=== PATIENT | male | born 1995 | race Caucasian/White ===

== ENCOUNTER 2017-12-23 10:57 | Emergency (ER) | payer BC, OTHER ==
[2017-12-23] MEDS ORDERED: Lidocaine 1% with EPINEPHrine 1:100,000 10 ML MDV INJECT ONE (11:29)
--- NOTE | 2017-12-23 11:33 | EDM.PDOC ---
ED HPI GENERAL MEDICAL PROBLEM - General Chief Complaint: Laceration Stated Complaint: FALL(HEAD INJURY) Time Seen by Provider: 12/23/17 11:30 Source of Information: Reports: Patient History Limitations: Reports: No Limitations - History of Present Illness INITIAL COMMENTS - FREE TEXT/NARRATIVE: HISTORY AND PHYSICAL: History of present illness: 22-year-old male presents to the ER after slipping and falling on the ice and hitting his head on the right side. Patient suffered a laceration to the right side ahead. Patient did not lose consciousness. Reports a headache as 5 out of 10 but did take some Tylenol prior to coming into the ER. Patient does not have any focal neurological deficits. He has no other acute concerns currently. Review of systems: As per history of present illness and below otherwise all systems reviewed and negative. Past medical history: As per history of present illness and as reviewed below otherwise noncontributory. Surgical history: As per history of present illness and as reviewed below otherwise noncontributory. Social history: No reported history of drug or alcohol abuse. Family history: As per history of present illness and as reviewed below otherwise noncontributory. Physical exam: HEENT: 3 cm laceration noted at the upper portion of the right side of the forehead. Lungs: Clear to auscultation, breath sounds equal bilaterally, chest nontender. Heart: S1S2, regular, negative for clicks, rubs, or JVD. Neuro: Awake, alert, oriented. Cranial nerves II through XII unremarkable. Cerebellum unremarkable. Motor and sensory unremarkable throughout. Exam nonfocal. Diagnostics: [] Therapeutics: 3-0 Prolene used to suture laceration yeny patient tolerated procedure well. t. 3 sutures used. Area was anesthetized using 1% lidocaine without epinephrine. Impression: Head laceration Plan: Patient will follow up with his PCP, Dr. clark, in 5-7 days to have sutures removed. Patient instructed to keep area dry for 24 hours and then to ensure that there is stays clean after that. Definitive disposition and diagnosis as appropriate pending reevaluation and review of above. Headache Pain Score (Numeric/FACES): 5 - Related Data Allergies Allergy/AdvReac Type Severity Reaction Status Date / Time Sulfa (Sulfonamide Allergy Rash Verified 12/23/17 11:14 Antibiotics) Home Meds: Home Meds . [No Known Home Meds] 12/23/17 [History] Past Medical History - Past Surgical History Musculoskeletal Surgical History: Reports: Knee Replacement Other Musculoskeletal Surgeries/Procedures:: Had a rebuild of his R knee Social & Family History - Family History Family Medical History: Noncontributory - Tobacco Use Smoking Status *Q: Never Smoker - Caffeine Use Caffeine Use: Reports: Soda - Recreational Drug Use Recreational Drug Use: No ED ROS GENERAL - Review of Systems Review Of Systems: ROS reveals no pertinent complaints other than HPI. ED EXAM, SKIN/RASH Exam: See Below Text/Narrative:: See dictation Course - Vital Signs Last Recorded V/S: Last Vital Signs Temp 98.3 F 12/23/17 11:12 Pulse 81 12/23/17 11:12 Resp 18 12/23/17 11:12 BP 135/85 12/23/17 11:12 Pulse Ox 97 12/23/17 11:12 - Orders/Labs/Meds Orders: Active Orders 24 hr Category Date Time Status Bacitracin [Bacitracin Oint 1 GM] Med 12/23/17 12:08 Once 1 dose TOP ONETIME ONE Meds: Medications Discontinued Medications Generic Name Dose Route Start Last Admin Trade Name Kaylyn PRN Reason Stop Dose Admin Lidocaine HCl Confirm 12/23/17 11:45 Xylocaine 1% Administered 12/23/17 11:46 Dose 20 ml .ROUTE .STK-MED ONE Lidocaine/Epinephrine 10 ml 12/23/17 11:29 Xylocaine 1% With Epinephrine 1:100,000 INJECT 12/23/17 11:30 ONETIME ONE Departure - Departure Time of Disposition: 12:10 Disposition: Home, Self-Care 01 Clinical Impression: Broken skin - Discharge Information Instructions: Laceration Care, Adult, [id number] Referrals: PCP,None [Primary Care Provider] - Forms: ED Department Discharge - Problem List & Annotations (1) Broken skin SNOMED Code(s): 960845629 Code(s): R23.8 - OTHER SKIN CHANGES Status: Acute Current Visit: Yes - Problem List Review Problem List Initiated/Reviewed/Updated: Yes - My Orders Last 24 Hours: My Active Orders 12/23/17 12:08 Bacitracin [Bacitracin Oint 1 GM] 1 dose TOP ONETIME ONE - Assessment/Plan Last 24 Hours: My Active Orders 12/23/17 12:08 Bacitracin [Bacitracin Oint 1 GM] 1 dose TOP ONETIME ONE Assessment:: The following information is given to patients seen in the emergency department who are being discharged to home. This information is to outline your options for follow-up care. We provide all patients seen in our emergency department with a follow-up referral. The need for follow-up, as well as the timing and circumstances, are variable depending upon the specifics of your emergency department visit. If you don't have a primary care physician on staff, we will provide you with a referral. We always advise you to contact your personal physician following an emergency department visit to inform them of the circumstance of the visit and for follow-up with them and/or the need for any referrals to a consulting specialist. The emergency department will also refer you to a specialist when appropriate. This referral assures that you have the opportunity for follow-up care with a specialist. All of these measure are taken in an effort to provide you with optimal care, which includes your follow-up. Under all circumstances we always encourage you to contact your private physician who remains a resource for coordinating your care. When calling for follow-up care, please make the office aware that this follow-up is from your recent emergency room visit. If for any reason you are refused follow-up, please contact the [facility] Emergency Department at and asked to speak to the emergency department charge nurse. Follow-up with primary care provider, Dr. clark, in 5-7 days for suture removal.
[2017-12-23] MEDS ORDERED: Lidocaine 1% 20 ML MDV ONE (11:45)
[2017-12-23] MEDS ORDERED: Bacitracin Oint 1 GM U/D Packet TOP ONE (12:08)
[2017-12-23] MEDS ORDERED: Lidocaine 1% 20 ML MDV INJECT ONE (12:30)
== END 2017-12-23 12:25 | disposition home or self-care (01) ==
LOC: MW.ED 10:57
DX: S01.81XA Laceration without foreign body of other part of head, initial encounter (principal); Z88.2 Allergy status to sulfonamides; W00.9XXA Unspecified fall due to ice and snow, initial encounter
CPT/HCPCS: 12013; 99282